=== PATIENT | female | born 1990 | race Caucasian/White ===

== ENCOUNTER 2017-01-08 18:24 | Outpatient (CLI) | payer OTHER ==
[2017-01-08 19:38] LABS: Appearance,Urine Cloudy (Clear); Bacteria,Urine Rare /hpf; Bilirubin,Urine Negative (Negative); Glucose,Urine (UA) Trace (Negative); Ketones,Urine 1+ (Negative); Leukocyte Esterase,Urine Large (Negative); Mucus,Urine Few /hpf; Nitrite,Urine Negative (Negative); PH, Urine 5.5 (5.0-8.0); Particle Count 15249; Protein,Urine 1+ (Negative); Specific Gravity,Urine 1.025 (1.001-1.035); Squamous Epithelial Cell,Urine 7 /hpf (0-4); UA Billing (MACRO vs. MICRO) MICRO; Urobilinogen,Urine <2.0 mg/dL (<2.0); WBC,Urine 15 /hpf (0-5)
[2017-01-08 19:41] VITALS: BP 118/71; RESP 20; TEMP 97.2
[2017-01-08] MEDS ORDERED: LACTATED RINGERS 1,000 ML IV SCH (19:45)
[2017-01-08 20:45] VITALS: PULSE 110
--- NOTE | 2017-01-16 15:01 | P.MSEPDOC ---
Presenting Problems - Arrival Data Date of Arrival on Unit: 01/08/17 Time of Arrival on Unit: 18:05 Mode of Transport: Ambulatory - Complaint OB-Reason for Admission/Chief Complaint: Other Comment: flu symptoms since 199. n/v. then contx this am. now when wiped pinkish on tissue. Medical History - Information : 1 Para: 0 Term: 0 : 0 Abortions: Spontaneous or Elective: 0 Number of Living Children: 0 - Gestational Age Expected Date of Delivery: 02/05/17 Gestational Age by MARCUS (wks/days): 37 Weeks and 1 Days - History Complications: Other Comment: flu. pinkish discharge. Review of Systems - Review of Systems Constitutional: No problems Breast: No problems ENT: No problems Cardiovascular: No problems Respiratory: No problems Gastrointestinal: No problems Genitourinary: No problems Musculoskeletal: No problems Neurological: No problems Skin: No problems Comment: see obix for history of preg. Vital Signs - Temperature Temperature: 97.2 F Temperature Source: Tympanic - Pulse Radial Pulse Rate: 110 Pulse Assessment Method: Pulse Oximetry - Respirations Respiratory Rate: 20 O2 Sat by Pulse Oximetry: 98 - Blood Pressure Right Arm Blood Pressure: 118/71 Blood Pressure Mean: 86 Blood Pressure Source: Automatic Cuff Medical Screen Scoring (Pre) - Uterine Contractions Frequency: N/A Duration: N/A Intensity: N/A - Maternal Vital Signs Maternal Temperature: N/A Maternal Blood Pressure: N/A Signs of Preeclampsia: Headache = 1, Nausea/Vomiting = 1 Maternal Respirations: N/A - Assessment Baseline FHR: 150 Heart Rate - NICHD Category: Category I (Normal) = 0 NST: Reactive - Total Score Total Score (Pre): 2 - Level of Risk Level of Risk: Low (0-5) Physician Notification (Pre) - Physician Notified Physician Notified Date: 01/08/17 Physician Notified Time: 19:00 Physician/Practitioner Notifed:: mary Spoke With: simin New Order Received: Yes Medical Screen Scoring (Post) - Cervical Exam Dilation: Exam Deferred - Total Score Total Score (Post): 0 - Post Treatment Level of Risk Post Treatment Level of Risk: Medium (6-9) Physician Notification (Post) - Physician Notified Physician Notified Date: 01/08/17 Physician Notified Time: 20:30 Physician/Practitioner Notified:: Luis Miguel New Order Received: Yes - Notification Comment Comment: discharge with instructions Disposition - Disposition OB Disposition: Discharge to home Discharge Date: 01/08/17 Discharge Time: 20:35 I agree with the RN Medical Screening Exam: No Risk & Benefit of care provided described in d/c instruction: No Diagnosis: RELATED CONDITIONS, UNSPECIFIED, THIRD TRIMESTER
== END 2017-01-08 20:35 | disposition home or self-care (01) ==
LOC: FBPOP 18:24
PROVIDERS: ATTEND Obstetrics & Gynecology
DX: O26.93 Pregnancy related conditions, unspecified, third trimester (principal); Z3A.37 37 weeks gestation of pregnancy
CPT/HCPCS: 59025; 81001; 87086; 96365; 99214

== ENCOUNTER 2017-01-27 00:15 | Inpatient (IN) | payer OTHER ==
[2017-01-27 01:19] VITALS: BMI 46.8
[2017-01-27] MEDS ORDERED: TERBUTALINE 1 MG/ML VIAL SQ PRN (01:21)
[2017-01-27] MEDS ORDERED: METHYLERGONOVINE 0.2 MG/ML 1 ML AMP IM PRN (01:21)
[2017-01-27] MEDS ORDERED: CARBOPROST TROMETHAMINE 250 MCG/ML 1 ML AMP IM PRN (01:21)
[2017-01-27] MEDS ORDERED: OXYTOCIN 10 UNIT/ML 1 ML VIAL IM PRN (01:21)
[2017-01-27] MEDS ORDERED: LIDOCAINE 1% (PF) 10 MG/ML (30 ML SDV) SQ PRN (01:21)
[2017-01-27] MEDS: LACTATED RINGERS 1,000 ML IV SCH ×4 (01:26→20:18)
[2017-01-27 01:41] LABS: Anisocytosis Slight; Basophils % (A) 0 %; CH 28.8; CHCM 32.4; Eosinophils # (A) 0.1 k/uL (0-0.7); Eosinophils % (A) 0 %; HCT 36.4 % (34.0-46.0); HDW 3.05; HGB 11.4 gm/dL (11.4-16.0); Hypochromasia Slight; Luc # (Auto) 0.26; Luc % (Auto) 2; Lymphocytes # (A) 1.8 k/uL (1.0-4.8); Lymphocytes % (A) 13 %; MCH 28.1 pg (25.0-35.0); MCHC 31.4 g/dL (31.0-37.0); MCV 89.4 fL (80.0-100.0); Mean Platelet Volume 8.8; Monocytes # (A) 0.8 k/uL (0-1.0); Monocytes % (A) 6 %; Neutrophils # (A) 11.5 k/uL (1.3-7.7); Neutrophils % (A) 80 %; RBC 4.07 m/uL (3.80-5.40); RDW 16.2 % (11.5-15.5); WBC 14.5 k/uL (3.8-10.6); WBC (Perox) 14.88
[2017-01-27] MEDS ORDERED: OXYTOCIN 20 UNITS/1000 ML NS 1,000 ML IV SCH (04:00)
[2017-01-27] MEDS ORDERED: SODIUM CHLORIDE 0.9% 100 ML BAG ONE (08:05)
[2017-01-27] MEDS ORDERED: fentaNYL (PF) 50 MCG/ML 5 ML AMP ONE (08:05)
[2017-01-27] MEDS ORDERED: BUPIVACAINE (PF) 0.25% 30 ML VIAL ONE (08:05)
--- NOTE | 2017-01-27 08:43 | P.HPOB ---
History of Present Illness H&P Date: 01/27/17 Chief Complaint: My water broke at 11:30 last night This is a 26-year-old white female 1 para 0 EDC 02/05/2017 at 38-5/7 weeks' gestation. Patient presents with a history of her water breaking at 11: 30 last night, she reports clear fluid. Irregular mild uterine contractions to follow. Fetus is been active throughout the . She denies vaginal bleeding. Past medical history is significant for depression and anxiety, along with asthma, exercise-induced. Past surgical history is negative. Current medications vitamins daily ALLERGIES none known. Social history significant for social alcohol, one half pack per day tobacco. 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 Family history is essentially unremarkable. history blood type is AB+, rubella status immune. VDRL testing, hepatitis B surface antigen, HIV testing, gonorrhea and chlamydia cultures, 1 hour Glucola screen all negative. Group B strep cultures negative. is remarkable for peripheral cord insertion, as well as elevated FREIDA, weekly nonstress testing all reassuring. On exam this is a pleasant young female, 5 foot 0 inches, 240 pounds, blood pressure 141/85, vital signs are otherwise stable and the patient is afebrile. The general physical exam is within normal limits. The cervix currently is 5-6 cm dilated, 70% effaced, -2 station, vertex presentation. There is meconium stained fluid noted at the bedside. heart rate with an internal scalp lead reveals good overall variability, suggestion of variable decelerations, some with late components. Overall reassuring. Impression: 38-5/7 weeks intrauterine , known elevated FREIDA and peripheral cord insertion, maternal anxiety and depression, meconium-stained fluid, now in active labor. Plan: Continue close maternal and surveillance. Epidural has been placed per her request. Anticipate normal spontaneous vaginal delivery. Past Medical History Past Medical History: No Reported History History of Any Multi-Drug Resistant Organisms: None Reported Past Surgical History: No Surgical Hx Reported Past Anesthesia/Blood Transfusion Reactions: No Reported Reaction Past Psychological History: Anxiety, Depression Smoking Status: Current every day smoker Past Drug Use History: None Reported - Past Family History Father Family Medical History: No Reported History Medications and Allergies Home Medications Medication Instructions Recorded Confirmed Type Sertraline [Zoloft] 50 mg PO DAILY 01/27/17 01/27/17 History Allergies Allergy/AdvReac Type Severity Reaction Status Date / Time No Known Allergies Allergy Verified 01/27/17 00:29 Exam - Vital Signs Vital signs: Vital Signs Temp Pulse Resp BP Pulse Ox 01/27/17 00:53 96.1 F L 116 H 18 141/85 98 01/27/17 00:45 96.1 F L 116 H 18 141/85 98 Intake and Output 01/26/17 01/27/17 01/27/17 22:59 06:59 14:59 Other: # Voids 2 Weight 108.862 kg Results Result Diagrams: 01/27/17 01:28 Abnormal Lab Results - Last 24 Hours (Table) 01/27/17 Range/Units 01:28 WBC 14.5 H (3.8-10.6) k/uL RDW 16.2 H (11.5-15.5) % Neutrophils # 11.5 H (1.3-7.7) k/uL
[2017-01-27] MEDS ORDERED: OXYTOCIN 10 UNIT/ML 1 ML VIAL ONE (15:01)
[2017-01-27] MEDS ORDERED: KETOROLAC 30 MG/ML 1 ML VIAL ONE (15:01)
[2017-01-27] MEDS ORDERED: MORPHINE SULFATE (PF) 0.3 MG/0.3 ML SYR ONE (15:01)
[2017-01-27] MEDS ORDERED: ONDANSETRON 4 MG/2 ML VIAL ONE (15:01)
[2017-01-27] MEDS ORDERED: ZOLPIDEM 5 MG TAB PO PRN (15:59)
[2017-01-27] MEDS ORDERED: diphenhydrAMINE 50 MG/ML 1 ML VIAL IVP PRN ×2 (15:59)
[2017-01-27] MEDS ORDERED: METOCLOPRAMIDE 5 MG/ML 2 ML VIAL IVP PRN (15:59)
[2017-01-27] MEDS ORDERED: ONDANSETRON 4 MG/2 ML VIAL IVP PRN ×2 (15:59→18:46)
[2017-01-27] MEDS ORDERED: NALOXONE 0.4 MG/ML 1 ML VIAL IV PRN ×2 (15:59→18:46)
[2017-01-27] MEDS ORDERED: diphenhydrAMINE 50 MG CAP PO PRN (15:59)
--- NOTE | 2017-01-27 15:59 | P.OP ---
Date of Procedure: 01/27/17 Preoperative Diagnosis: Arrest of descent, maternal exhaustion Postoperative Diagnosis: Left occiput transverse position Procedure(s) Performed: Primary low transverse section Implants: Anesthesia: spinal Surgeon: Alena Briscoe Salesperson Corsets #1: Petey Ba Estimated Blood Loss (ml): 600 IV fluids (ml): 1,000 Urine output (ml): 100 Pathology: other (Meconium-stained placenta) Condition: stable Disposition: PACU Indications for Procedure: Operative Findings: Description of Procedure: After an hour and 45 minutes of the second stage of labor, no distention of the head was noted. In addition, there was a fair amount of It. The patient stated she was exhausted and was no longer willing to push. Therefore the decision was made to proceed with a primary low transverse section. Hutton catheter placed to direct drainage. Ancef given prophylactically. Patient brought back to the operating room where a spinal with Duramorph was placed without difficulty. She's placed in the dorsal supine position with left lateral uterine displacement. The abdomen is prepped and draped in usual sterile fashion. The appropriate timeout is performed to assure proper patient and procedural identification. The analgesia is checked and noted to be adequate. A low transverse skin incision is made in this is carried down to the subcutaneous tissue which is approximate 10 cm deep. Fascia is isolated, scored and extended bilaterally with curved Pickett scissors. Peritoneum is next identified and incised, there is no bowel or bladder involvement. The disposable ring retractors placed into the abdomen for very good exposure. A low transverse uterine incision is made in this is carried down through the myometrium. It is extended with blunt dissection. The 's head is delivered in the left occiput transverse position. The umbilical cord is doubly clamped and ligated. Patient is officially delivered of a liveborn female infant at 1527 hours. weighed 7 lbs. 14 oz. or 3570 g. Infant is handed to waiting nurses for evaluation where scores of 8 and 9 at one and 5 minutes respectively are given. The placentas delivered manually, it is inspected and noted to be intact with trivascular cord at 1528 hrs. It is noted to be darkly meconium stained. The uterus is externalized. It is wiped clean with a sterile sponge to avoid any retained products of conception. The uterus is closed in a two-step fashion , first layer in a running locking technique, second layer imbricated. Bilateral ovaries and tubes are inspected and noted to be normal. Abdomen is suctioned with suction on guard and the uterus is gently placed back into the abdominal cavity. Bilateral gutters are inspected and cleaned. Uterine incision is noted to be clean and dry, well approximated. Peritoneum is closed with a 3-0 Vicryl suture in a running fashion. Fascia is closed in a running fashion with 0 Vicryl suture. Over ligation in the midline is performed. Subcutaneous tissue is irrigated and noted to be clean and dry. It is reapproximated with 3-0 Vicryl in a running stitch. Wide jami are used for final skin closure. Dressing is placed to the wound. Uterus is then massaged and several clots from the intrauterine cavity are expressed. Hutton is noted to be draining clear urine. All sponge needle and enhancement counts are correct at the end of this procedure. Patient is brought back to the recovery room in very good condition with stable vital signs including a pulse of 102, blood pressure 97/46.
[2017-01-27] MEDS ORDERED: MORPHINE SULFATE 4 MG/ML SYRINGE IVP PRN (18:46)
[2017-01-27] MEDS: SENNOSIDES-DOCUSATE SODIUM 1 EACH TAB PO SCH (20:18)
[2017-01-27] MEDS: KETOROLAC 30 MG/ML 1 ML VIAL IVP PRN (21:44)
[2017-01-28] MEDS: LACTATED RINGERS 1,000 ML IV SCH (00:46)
[2017-01-28] MEDS: KETOROLAC 30 MG/ML 1 ML VIAL IVP PRN (04:11)
[2017-01-28] MEDS: SENNOSIDES-DOCUSATE SODIUM 1 EACH TAB PO SCH ×2 (07:31→19:55)
--- NOTE | 2017-01-28 07:46 | P.PN ---
Subjective Principal diagnosis: Postoperative day #1 Well. Positive flatus. Pain well controlled. Moderate lochia rubra, no large blood clots. Objective - Vital Signs Vital signs: Vital Signs Temp 97.9 F 01/28/17 07:32 Pulse 97 01/28/17 07:32 Resp 16 01/28/17 07:32 BP 102/63 01/28/17 07:32 Pulse Ox 97 01/28/17 04:00 Intake & Output 01/27/17 01/28/17 01/28/17 18:59 06:59 18:59 Intake Total 600 Output Total 1700 Balance -1100 Intake: Other 600 Output: Urine 1700 Straight 1100 Uretheral (Hutton) 600 Other: Voiding Method Indwelling Catheter - Constitutional General appearance: Present: morbidly obese - EENT Eyes: Present: PERRLA ENT: Present: hearing grossly normal - Neck Neck: Present: normal ROM - Respiratory Respiratory: bilateral: CTA - Cardiovascular Rhythm: regular - Gastrointestinal General gastrointestinal: Present: normal bowel sounds - Integumentary Integumentary Comment(s): Incision clean and dry, intact, well approximated. Fundus firm, midline, symmetric, 18-20 week size. Integumentary: Present: normal - Neurologic Neurologic: Present: CNII-XII intact - Musculoskeletal Musculoskeletal: Present: gait normal, strength equal bilaterally - Psychiatric Psychiatric: Present: A&O x's 3, appropriate affect, intact judgment & insight - Labs CBC & Chem 7: 01/27/17 01:28 Assessment and Plan Plan: Continue postoperative care. Advanced diet and activity, likely discharge home tomorrow. Time with Patient: Less than 30
[2017-01-28] MEDS ORDERED: SERTRALINE 50 MG TAB PO STA (08:01)
[2017-01-28] MEDS: diphenhydrAMINE 25 MG CAP PO PRN (08:56)
[2017-01-28 09:38] LABS: Anisocytosis Slight; Basophils % (A) 0 %; CH 28.5; CHCM 32.1; Eosinophils % (A) 0 %; HCT 36.3 % (34.0-46.0); HDW 3.07; HGB 11.4 gm/dL (11.4-16.0); Hypochromasia Slight; Luc # (Auto) 0.28; Luc % (Auto) 2; Lymphocytes # (A) 1.7 k/uL (1.0-4.8); Lymphocytes % (A) 10 %; MCH 27.9 pg (25.0-35.0); MCHC 31.3 g/dL (31.0-37.0); MCV 89.1 fL (80.0-100.0); Mean Platelet Volume 8.8; Monocytes % (A) 6 %; Neutrophils # (A) 13.9 k/uL (1.3-7.7); Neutrophils % (A) 82 %; RBC 4.08 m/uL (3.80-5.40); RDW 16.8 % (11.5-15.5); WBC 16.9 k/uL (3.8-10.6); WBC (Perox) 16.79
[2017-01-28] MEDS: IBUPROFEN 600 MG TAB PO PRN ×3 (10:43→21:20)
--- NOTE | 2017-01-28 12:13 | P.PN ---
Progress Note - Text Postoperative day 1 status post section under spinal anesthesia, and intrathecal morphine given for postoperative analgesia, patient doing well, there is no anesthesia related complications, further management as per her primary team
[2017-01-28] MEDS: ACETAMINOPHEN TAB 325 MG TAB PO PRN (17:50)
[2017-01-29] MEDS: ACETAMINOPHEN TAB 325 MG TAB PO PRN ×2 (00:21→08:08)
[2017-01-29] MEDS: diphenhydrAMINE 25 MG CAP PO PRN (00:21)
[2017-01-29] MEDS: LACTATED RINGERS 1,000 ML IV SCH ×3 (00:57→20:47)
[2017-01-29] MEDS: Acetaminophen-Codeine 300-30mg TAB PO PRN ×4 (03:50→22:31)
--- NOTE | 2017-01-29 07:37 | P.PN ---
Subjective Principal diagnosis: Postoperative day #2 Positive flatus, breast-feeding going well. No complaints. Objective - Vital Signs Vital signs: Vital Signs Temp 98.6 F 01/29/17 00:00 Pulse 96 01/29/17 00:00 Resp 18 01/29/17 00:00 BP 123/83 01/29/17 00:00 Pulse Ox 96 01/29/17 00:00 Intake & Output 01/28/17 01/29/17 01/29/17 18:59 06:59 18:59 Output Total 750 Balance -750 Output: Urine 750 Other: Voiding Method Toilet - Constitutional General appearance: Present: morbidly obese - EENT Eyes: Present: PERRLA ENT: Present: hearing grossly normal - Neck Thyroid: bilateral: normal size - Respiratory Respiratory: bilateral: CTA - Cardiovascular Rhythm: regular - Gastrointestinal General gastrointestinal: Present: normal bowel sounds - Integumentary Integumentary Comment(s): Incision clean and dry, intact, well approximated. Uterine fundus firm, nontender, 18 week size. - Neurologic Neurologic: Present: CNII-XII intact - Musculoskeletal Musculoskeletal: Present: gait normal, strength equal bilaterally - Psychiatric Psychiatric: Present: A&O x's 3, appropriate affect, intact judgment & insight - Labs CBC & Chem 7: 01/28/17 09:15 Labs: Abnormal Lab Results - Last 24 Hours (Table) 01/28/17 Range/Units 09:15 WBC 16.9 H (3.8-10.6) k/uL RDW 16.8 H (11.5-15.5) % Neutrophils # 13.9 H (1.3-7.7) k/uL Assessment and Plan Plan: Possible discharge home today pending newborns status. Patient would be in very good condition for discharge home, and would use [id number] ibuprofen products as needed for pain. I'm recommending ibuprofen, 200 mg pills , for every 8 hours as needed. I reviewed with her proper incisional care. No intercourse tampons or douching. Call with any redness or drainage of the incision, with any pain not alleviated by ibuprofen, with any issues breast- feeding or with any difficulties. No driving for 2 weeks, no heavy lifting, no intercourse. I have given the patient a prescription for breast pump. She will continue taking her vitamin daily. In addition, I have given her prescription for Zoloft 50 mg to continue once daily. Time with Patient: Less than 30
[2017-01-29] MEDS: SENNOSIDES-DOCUSATE SODIUM 1 EACH TAB PO SCH ×2 (08:08→19:46)
[2017-01-29] MEDS: IBUPROFEN 600 MG TAB PO PRN ×2 (11:11→17:27)
[2017-01-30] MEDS: IBUPROFEN 600 MG TAB PO PRN ×4 (01:30→20:17)
[2017-01-30] MEDS: Acetaminophen-Codeine 300-30mg TAB PO PRN ×3 (03:19→15:49)
--- NOTE | 2017-01-30 07:21 | P.DS ---
Providers Date of admission: 01/27/17 00:45 Expected date of discharge: 01/30/17 Attending physician: Alena Briscoe [facility] Course: This is a 26-year-old white female 1 para 0 EDC 02/05 17 at 38 and sevenths weeks' gestation. Patient presented with spontaneous amniorrhexis, clear fluid. Her was unremarkable, group B strep cultures negative, rubella status immune, blood type AB positive. Please see dictated history and physical for details. Patient progressed to complete dilatation and began the second stage of labor. She was unable to progress, malposition suspected. She underwent a primary low transverse section and gave to a liveborn female infant in the left occiput transverse position. Infant weighed 7 lbs. 14 oz. or 3570 g. She did well intraoperatively with an estimated blood loss of 600 mL 's. Please see my dictated operative note for details. The patient has done well postoperatively. This morning she is voiding, ambulating and passing flatus without difficulty. Her incision is clean and dry , intact. Jesus will be removed and Steri-Strips with Mastisol will be applied. Her breasts are not engorged. Her extremities reveal trace edema. Chest is clear in all zaragoza. Patient has been started on Zoloft 50 mg once daily for a history of depression. This morning she denies any suicidal or homicidal ideation. At this point the is undergoing phototherapy for increased bilirubin. If infant is discharged home later today, plan is to discharge the patient as well. I have given her prescription for Zoloft 50 mg to continue once daily. I have written her prescription for Tylenol 3, 1-2 pills every 4 hours as needed for moderate to severe pain. She will alternate this with over-the- counter ibuprofen products, 200 mg pills, 3 every 6 hours as needed. I have asked her to call me with any fevers shakes or chills, foul smelling or copious lochia, with the passage of large blood clots, with any pain not alleviated by the above regime, or indeed with any concerns. No driving for 2 weeks, no heavy lifting, no intercourse tampons or douching. We have briefly discussed options for contraception and we will review this more thoroughly in the office. will follow-up with novelty balloon assembler and packer as per recommendations. Patient Condition at Discharge: Good Plan - Discharge Summary New Discharge Prescriptions: No Action Sertraline [Zoloft] 50 mg PO DAILY Discharge Medication List Sertraline [Zoloft] 50 mg PO DAILY 01/27/17 [History] Follow up Appointment(s)/Referral(s): Alena Briscoe MD [Primary Care Provider] - 2 Weeks Discharge Disposition: HOME SELF-CARE
[2017-01-30] MEDS: SENNOSIDES-DOCUSATE SODIUM 1 EACH TAB PO SCH ×2 (07:43→20:17)
[2017-01-30] MEDS: SIMETHICONE 80 MG CHEWABLE PO PRN ×2 (09:10→14:20)
[2017-01-31] MEDS: Acetaminophen-Codeine 300-30mg TAB PO PRN ×2 (00:01→08:31)
[2017-01-31] MEDS: SENNOSIDES-DOCUSATE SODIUM 1 EACH TAB PO SCH ×2 (00:01→08:32)
[2017-01-31 00:07] VITALS: TEMP 98.4
[2017-01-31] MEDS: SIMETHICONE 80 MG CHEWABLE PO PRN (00:21)
[2017-01-31] MEDS: IBUPROFEN 600 MG TAB PO PRN (01:41)
[2017-01-31 09:33] VITALS: BP 99/62; PULSE 65; RESP 17
== END 2017-01-31 11:27 | disposition home or self-care (01) | DRG 766 ==
LOC: FBPOP 00:15 → 4FBP 00:45
PROVIDERS: ADMIT Obstetrics & Gynecology; ATTEND Obstetrics & Gynecology
PROC: 10D00Z1 Extraction of Products of Conception, Low, Open Approach (ICD-10-PCS; principal; 2017-01-27 15:09)
PROC: 4A1H74Z Monitoring of Products of Conception, Cardiac Electrical Activity, Via Natural or Artificial Opening (ICD-10-PCS; principal; 2017-01-27 15:09)
DX: O77.0 Labor and delivery complicated by meconium in amniotic fluid (principal); O64.0XX0 Obstructed labor due to incomplete rotation of fetal head, not applicable or unspecified; F32.9 Major depressive disorder, single episode, unspecified; Z37.0 Single live birth; O99.344 Other mental disorders complicating childbirth; O75.81 Maternal exhaustion complicating labor and delivery; O99.334 Smoking (tobacco) complicating childbirth; F17.200 Nicotine dependence, unspecified, uncomplicated; Z79.899 Other long term (current) drug therapy; Z3A.38 38 weeks gestation of pregnancy
CPT/HCPCS: 59025; 84112; 85025; 88307; 94760; 99213

== ENCOUNTER → 2017-11-19 | Outpatient (CLI) | payer OTHER ==
[2017-11-19 17:33] LABS: HCT 40.3 % (34.0-46.0); HGB 13.7 gm/dL (11.4-16.0); MCH 29.7 pg (25.0-35.0); MCV 87.2 fL (80.0-100.0); Mean Platelet Volume 7.1; Platelet Count 233 k/uL (150-450); RBC 4.62 m/uL (3.80-5.40); RDW 15.6 % (11.5-15.5); WBC 14.2 k/uL (3.8-10.6)
[2017-11-19 17:38] LABS: Glucose 73 mg/dL (74-99)
[2017-11-20 01:26] LABS: HIV AB P24 Non-Reactive (Non-Reactive); HIV P24 AG Non-Reactive (Non-Reactive)
== END | disposition home or self-care (01) ==
LOC: LABWHC1 16:22
PROVIDERS: ATTEND Obstetrics & Gynecology
DX: O26.811 Pregnancy related exhaustion and fatigue, first trimester (principal); Z3A.00 Weeks of gestation of pregnancy not specified
CPT/HCPCS: 36415; 82565; 82947; 85027; 86762; 86780; 86850; 86900; 86901; 87340; 87390

== ENCOUNTER 2018-06-07 10:59 | Outpatient (CLI) | payer OTHER ==
[2018-06-07 11:28] VITALS: BP 117/63; PULSE 97; RESP 16; TEMP 98.1
--- NOTE | 2018-07-01 18:04 | P.MSEPDOC ---
Presenting Problems - Arrival Data Date of Arrival on Unit: 06/07/18 Time of Arrival on Unit: 11:12 Mode of Transport: Ambulatory - Complaint OB-Reason for Admission/Chief Complaint: NST Comment: pt here for a NST due to GDM per Dr. Maher Medical History - Information : 2 Para: 1 Term: 1 : 0 Abortions: Spontaneous or Elective: 0 Number of Living Children: 1 - Gestational Age Gestational Age by MARCUS (wks/days): 38 Weeks and 3 Days - History Complications: GDM Review of Systems - Review of Systems Constitutional: No problems Breast: No problems ENT: No problems Cardiovascular: No problems Respiratory: No problems Gastrointestinal: No problems Genitourinary: No problems Musculoskeletal: No problems Neurological: No problems Skin: No problems Vital Signs - Temperature Temperature: 98.1 F Temperature Source: Oral - Pulse Right Brachial Pulse Rate: 97 Pulse Assessment Method: Automatic Cuff - Respirations Respiratory Rate: 16 Oxygen Delivery Method: Room Air - Blood Pressure Right Arm Blood Pressure: 117/63 Blood Pressure Mean: 81 Blood Pressure Source: Automatic Cuff Medical Screen Scoring (Pre) - Cervical Exam Dilation: Exam Deferred Effacement: Exam Deferred Membranes: Intact - Uterine Contractions Frequency: N/A Duration: N/A Intensity: N/A - Maternal Vital Signs Maternal Temperature: N/A Maternal Blood Pressure: N/A Signs of Preeclampsia: Headache = 1 Maternal Respirations: N/A - Pain Assessment Pain Scale Used: Numeric (1 - 10) Pain Intensity: 0 Pain Management Goal: 0 Pain Behavior: Vocalization - Maternal Trauma Maternal Trauma: N/A - Total Score Total Score (Pre): 1 Medical Screen Scoring (Post) - Assessment Heart Rate: 130 Heart Rate - NICHD Category: Category I (Normal) = 0 NST: Reactive Position: N/A Station: N/A - Total Score Total Score (Post): 0 - Post Treatment Level of Risk Post Treatment Level of Risk: Low (0-5) Physician Notification (Post) - Physician Notified Physician Notified Date: 06/07/18 Physician Notified Time: 12:05 Spoke With: dr higginbotham New Order Received: Yes - Notification Comment Comment: may discharge to home Disposition - Disposition OB Disposition: Discharge to home Discharge Date: 06/07/18 Discharge Time: 12:19 I agree with the RN Medical Screening Exam: Yes Risk & Benefit of care provided described in d/c instruction: Yes Diagnosis: GESTATIONAL DIABETES IN , INSULIN CONTROLLED
== END 2018-06-07 12:19 | disposition home or self-care (01) ==
LOC: FBPOP 10:59
PROVIDERS: ATTEND Obstetrics & Gynecology
DX: O24.414 Gestational diabetes mellitus in pregnancy, insulin controlled (principal); Z3A.38 38 weeks gestation of pregnancy
CPT/HCPCS: 59025; 99213

== ENCOUNTER 2018-06-16 05:46 | Inpatient (IN) | payer OTHER ==
--- NOTE | 2018-06-14 13:56 | P.HPOB ---
History of Present Illness H&P Date: 06/14/18 Chief Complaint: Patient is presenting for repeat section. This patient is a pleasant 28-year-old 2 para 1 female estimated date of confinement 06/18/2018 estimated gestational age 39-5/7 weeks who presents to labor and delivery for elective repeat section. Patient's had a previous section for failure to progress after pushing for 1 hour and as requested repeat section. has been complicated by gestational diabetes which has been diet controlled(per maternal- medicine) . is been otherwise uncomplicated. Review of Systems Gastrointestinal: Reports heartburn Genitourinary: Reports Menstruation: Reports amenorrhea Past Medical History Past Medical History: Diabetes Mellitus Additional Past Medical History / Comment(s): GESTATIONAL DIABETES (DIET CONTROLLED), HX OF PALPITATIONS DUE TO ANXIETY., OCCASIONAL GERD., - LMP August History of Any Multi-Drug Resistant Organisms: None Reported Past Surgical History: Section Past Anesthesia/Blood Transfusion Reactions: No Reported Reaction, Motion Sickness Past Psychological History: Anxiety, Depression Smoking Status: Former smoker Past Alcohol Use History: None Reported Additional Past Alcohol Use History / Comment(s): QUIT SMOKING 1 MONTH AGO (APR 2018). SMOKED 1-2 CIGARETTES /DAY. SMOKED 16 YEARS. Past Drug Use History: None Reported - Past Family History Father Family Medical History: No Reported History Mother Additional Family Medical History / Comment(s): PRE-CANCEROUS CELLS UTERINE Medications and Allergies Home Medications Medication Instructions Recorded Confirmed Type Pnv No.95/Ferrous Fum/Folic AC 1 each PO DAILY 06/07/18 06/11/18 History [ Multivitamin Tablet] Acetaminophen [Tylenol Extra 1,000 mg PO DIRECTED PRN 06/11/18 06/11/18 History Strength] Allergies Allergy/AdvReac Type Severity Reaction Status Date / Time No Known Allergies Allergy Verified 06/11/18 14:48 Exam - OBG Physical Exam Abdomen: bowel sounds normal, no diffuse tenderness, no bruit present, no guarding noted, no hepatomegaly, no splenomegaly, no mass Vulva: both: normal Vagina: normal moisture, no discharge Cervix: no lesion, no discharge Uterus: enlarged (Fundal is 42 cm.) Results blood work shows she is AB+, rubella immune, RPR is nonreactive, hepatitis B is negative, HIV is nonreactive, Glucola was 148 with an abnormal 3 hour gtt. Ultrasounds including level III per maternal- medicine were normal. Assessment and Plan Assessment: This is a pleasant 28-year-old 2 para 1 female 39-5/7 weeks' gestation with diet-controlled gestational diabetes. Patient is a previous section desires repeat section. Plan at this time is repeat low transverse section. Akua and Ann have discussed the surgery and risks including risks of infection, bleeding, possible injury bowel, bladder, vessels , and/or other organs. She also understands risk of DVT and pulmonary embolism. All the patient's questions are answered written consent is obtained. (1) 39 weeks gestation of Status: Acute Code(s): Z3A.39 - 39 WEEKS GESTATION OF SNOMED Code( s): 18502208 (2) Gestational diabetes mellitus (GDM) in childbirth, diet controlled Status: Acute Code(s): O24.420 - GESTATIONAL DIABETES MELLITUS IN CHILDBIRTH, DIET CONTROLLED SNOMED Code(s): 18371021 (3) Previous delivery affecting Status: Acute Code(s): O34.219 - MATERNAL CARE FOR UNSP TYPE SCAR FROM PREVIOUS DEL SNOMED Code(s): 392453092
[2018-06-16] MEDS ORDERED: LACTATED RINGERS 1,000 ML IV ONE (05:57)
[2018-06-16] MEDS ORDERED: CITRIC ACID-SODIUM CITRATE 15 ML CUP PO ONE (05:57)
[2018-06-16] MEDS ORDERED: LACTATED RINGERS 1,000 ML IV SCH (05:57)
[2018-06-16 06:03] VITALS: RESP 16; BMI 47.8
[2018-06-16 06:05] LABS: Glucose,Whole Blood 80 mg/dL (75-99)
[2018-06-16 06:35] LABS: Anisocytosis Slight; Basophils % (A) 0 %; Eosinophils # (A) 0.1 k/uL (0-0.7); Eosinophils % (A) 1 %; HCT 35.8 % (34.0-46.0); HGB 11.5 gm/dL (11.4-16.0); Hypochromasia Slight; Lymphocytes # (A) 1.9 k/uL (1.0-4.8); Lymphocytes % (A) 16 %; MCH 25.7 pg (25.0-35.0); MCV 80.2 fL (80.0-100.0); Mean Platelet Volume 8.4; Monocytes # (A) 0.6 k/uL (0-1.0); Monocytes % (A) 5 %; Neutrophils # (A) 8.9 k/uL (1.3-7.7); Neutrophils % (A) 76 %; Platelet Count 198 k/uL (150-450); RBC 4.47 m/uL (3.80-5.40); RDW 16.2 % (11.5-15.5); WBC 11.7 k/uL (3.8-10.6)
[2018-06-16] MEDS ORDERED: ceFAZolin IN SWFI 2 GM/20 ML SYRINGE IVP ONE (07:15)
[2018-06-16] MEDS ORDERED: KETOROLAC 30 MG/ML 1 ML VIAL ONE (07:51)
[2018-06-16] MEDS ORDERED: OXYTOCIN 10 UNIT/ML 1 ML VIAL ONE (07:51)
[2018-06-16] MEDS ORDERED: MORPHINE SULFATE (PF) 0.3 MG/0.3 ML SYR ONE (07:51)
[2018-06-16] MEDS ORDERED: NALBUPHINE 10 MG/ML VIAL (10ML MDV) ONE (07:51)
[2018-06-16] MEDS ORDERED: ePHEDrine SULFATE/0.9% NACL/PF 50 MG/5 ML SYRINGE IV ONE (07:51)
[2018-06-16] MEDS ORDERED: ONDANSETRON 4 MG/2 ML VIAL ONE (07:51)
[2018-06-16] MEDS ORDERED: ONDANSETRON 4 MG/2 ML VIAL IVP PRN ×2 (08:15→08:53)
[2018-06-16] MEDS ORDERED: NALOXONE 0.4 MG/ML 1 ML VIAL IV PRN ×2 (08:15→08:53)
[2018-06-16] MEDS ORDERED: diphenhydrAMINE 50 MG/ML 1 ML VIAL IVP PRN ×2 (08:15→08:53)
[2018-06-16] MEDS ORDERED: MORPHINE SULFATE 4 MG/ML SYRINGE IVP PRN (08:15)
--- NOTE | 2018-06-16 08:41 | P.OP ---
Date of Procedure: 06/16/18 Preoperative Diagnosis: #1: 39-5/7 week intrauterine . #2: Previous section desires repeat. #3: Gestational diabetes. Postoperative Diagnosis: Same Procedure(s) Performed: Repeat low transverse section Anesthesia: spinal Surgeon: Kaleb Maher Motorcoach Operator #1: Beatriz Crockett Estimated Blood Loss (ml): 800 Pathology: other (Placenta) Condition: stable Disposition: floor Indications for Procedure: Please see dictated H&P for intimate details of this patient's admission. In brief summary this is a pleasant 28-year-old 2 para 1 female 39-5/7 weeks gestation who is admitted to labor and delivery for elective repeat section. Patient understands this surgery and risks including risks of infection, bleeding, possible injury bowel, bladder, vessels, and/or other organs. She also understands increased risk of DVT and pulmonary embolism. All the patient's questions are answered written consent is obtained. Operative Findings: This is a vigorous viable female Apgars 9 and 9 delivery time was 0807 hrs. Patient had some omental adhesions to the upper abdominal part of the incision. Description of Procedure: This patient has a Hutton catheter placed to straight drain. She subsequent weight taken to the operating room where she sat up and spinal anesthetic is administered without incident. With an adequate level of anesthesia she has abdominal prep and drape. The previous Pfannenstiel incision is then incised and taken down to the fascia. Fascia is then scored with a second scalpel and then extended bilaterally using Pickett scissors. The parietal peritoneum was then identified and entered sharply. Peritoneal incision extended superior and inferior without difficulty. There was noted to be omental adhesions to the superior part of this incision. Bladder blade is then placed. Bladder peritoneum was taken down sharply with Metzenbaum scissors. Scalpels and taken low transverse uterine incision is then made. Using a hemostat I enter the uterine cavity bluntly and is loss of a large amount of clear fluid. 's head is then guided through the incision with fundal pressure delivered. Mouth and nares are bulb suctioned. There is no evidence of nuchal cord. Then gentle fundal pressure and then deliver the rest this infant's body. Is a vigorous viable female Apgars are 9 and 9 delivery time is 0807 hrs. The cord was allowed to finish pulsating is then doubly clamped cut appears to be trivascular. The infant is then handed off to nurses in attendance. Placenta is manually extracted intact. Uterus is then externalized and demarcated with Torrez clamps. Uterine incision closed in 0 Vicryl running locked fashion 2 layers. Excellent hemostasis is noted. Excess fluid is removed from the abdomen and pelvis. Uterus placed back into the abdomen. Parietal peritoneum was then closed in 0 Vicryl running fashion. Fascial incision closed in 0 PDS running fashion. Fascial incision is intact and hemostatic. Subcutaneous tissues and closed in 3-0 Vicryl. Skin is and closed using jami. All counts are correct 3. Sterile dressing is applied. There are no complications. and mother are taken to the birthing suite in satisfactory condition.
[2018-06-16] MEDS ORDERED: LANOLIN CREAM 5 GM TUBE TOPICAL PRN (08:53)
[2018-06-16] MEDS ORDERED: KETOROLAC 30 MG/ML 1 ML VIAL IVP PRN (08:53)
[2018-06-16] MEDS ORDERED: SIMETHICONE 80 MG CHEWABLE PO PRN (08:53)
[2018-06-16] MEDS ORDERED: ZOLPIDEM 5 MG TAB PO PRN (08:53)
[2018-06-16] MEDS ORDERED: OXYTOCIN 20 UNITS/1000 ML NS 1,000 ML IV SCH (08:53)
[2018-06-16] MEDS ORDERED: METOCLOPRAMIDE 5 MG/ML 2 ML VIAL IVP PRN (08:53)
[2018-06-16] MEDS: IBUPROFEN 600 MG TAB PO PRN (09:33)
[2018-06-16] MEDS: SENNOSIDES-DOCUSATE SODIUM 1 EACH TAB PO SCH ×2 (13:15→19:33)
[2018-06-16 14:17] LABS: Hemoglobin A1C 5.7 % (4.0-6.0)
[2018-06-16] MEDS: LACTATED RINGERS 1,000 ML IV SCH ×2 (14:45→16:57)
[2018-06-16] MEDS: KETOROLAC 30 MG/ML 1 ML VIAL IVP PRN ×2 (16:19→22:34)
[2018-06-16] MEDS: diphenhydrAMINE 25 MG CAP PO PRN ×2 (18:23→23:18)
[2018-06-17] MEDS: KETOROLAC 30 MG/ML 1 ML VIAL IVP PRN (04:45)
[2018-06-17] MEDS ORDERED: HYDROcodone/APAP 5-325MG 1 EACH TAB PO PRN (05:49)
--- NOTE | 2018-06-17 05:53 | P.PNOBGPC ---
Subjective - Subjective Patient reports: Reports appetite normal, Reports voiding normally, Reports pain well controlled, Reports ambulating normally : doing well Objective - Vital Signs Latest vital signs: Vital Signs Temp Pulse Resp BP Pulse Ox 06/17/18 05:47 16 06/17/18 04:00 98.2 F 109 H 16 108/74 06/17/18 02:00 16 06/16/18 23:32 98.6 F 91 16 122/71 06/16/18 22:00 16 06/16/18 19:56 97.8 F 80 16 116/64 100 06/16/18 16:00 97.6 F 84 16 112/63 96 06/16/18 15:00 97.6 F 84 16 112/63 96 06/16/18 13:20 98 06/16/18 13:00 16 99 06/16/18 12:00 97.1 F L 79 16 108/58 95 06/16/18 11:15 16 95 06/16/18 10:34 97.6 F 89 16 113/56 06/16/18 10:06 98.0 F 92 16 106/56 06/16/18 09:34 97.3 F L 16 117/60 06/16/18 09:21 98.0 F 104 H 16 113/59 06/16/18 09:09 16 97 06/16/18 09:04 97.7 F 92 16 124/61 06/16/18 08:51 96.9 F L 108 H 16 125/60 06/16/18 08:36 97.6 F 93 16 130/62 06/16/18 08:15 97.6 F 93 16 97 06/16/18 06:00 97.0 F L 103 H 16 129/80 99 Intake and Output 06/16/18 06/16/18 06/17/18 14:59 22:59 06:59 Output Total 450 200 200 Balance -450 -200 -200 Output: Urine 450 200 200 Straight 450 Other: Voiding Method Indwelling Catheter # Voids 0 1 - Exam Lungs: bilateral: normal Chest: Normal S1, Normal S2 Extremities: Present: normal Abdomen: Present: normal appearance, soft. Absent: distention, tenderness Incision: Present: normal, dry, intact Uterus: Present: normal, firm - Labs Labs: Abnormal Lab Results - Last 24 Hours (Table) 06/16/18 Range/Units 06:20 WBC 11.7 H (3.8-10.6) k/uL RDW 16.2 H (11.5-15.5) % Neutrophils # 8.9 H (1.3-7.7) k/uL Assessment and Plan Assessment: Postoperative day #1. Patient is resting without complaints. Vital signs are stable she is afebrile. Uterus is firm nontender and her incision is intact and dry. CBC is pending. Patient is tolerating some solid food and she is urinating without difficulty. My impression is a normal postoperative course. Plan is to check a CBC, encourage more ambulation, encouraged patient to shower. Continue routine postoperative care. (1) 39 weeks gestation of Current Visit: No Status: Acute Code(s): Z3A.39 - 39 WEEKS GESTATION OF SNOMED Code(s): 67484061 (2) Gestational diabetes mellitus (GDM) in childbirth, diet controlled Current Visit: No Status: Acute Code(s): O24.420 - GESTATIONAL DIABETES MELLITUS IN CHILDBIRTH, DIET CONTROLLED SNOMED Code(s): 20652592 (3) Previous delivery affecting Current Visit: No Status: Acute Code(s): O34.219 - MATERNAL CARE FOR UNSP TYPE SCAR FROM PREVIOUS DEL SNOMED Code(s): 857683278
[2018-06-17] MEDS: ACETAMINOPHEN TAB 325 MG TAB PO PRN ×3 (07:16→20:08)
[2018-06-17] MEDS: diphenhydrAMINE 25 MG CAP PO PRN (07:16)
[2018-06-17 08:03] LABS: Anisocytosis Slight; Basophils % (A) 0 %; Eosinophils # (A) 0.1 k/uL (0-0.7); Eosinophils % (A) 1 %; HCT 34.7 % (34.0-46.0); HGB 11.1 gm/dL (11.4-16.0); Hypochromasia Slight; Lymphocytes # (A) 1.3 k/uL (1.0-4.8); Lymphocytes % (A) 12 %; MCH 25.9 pg (25.0-35.0); MCHC 32.1 g/dL (31.0-37.0); MCV 80.7 fL (80.0-100.0); Mean Platelet Volume 8.5; Monocytes # (A) 0.6 k/uL (0-1.0); Monocytes % (A) 5 %; Neutrophils # (A) 8.8 k/uL (1.3-7.7); Neutrophils % (A) 81 %; Platelet Count 200 k/uL (150-450); RDW 16.3 % (11.5-15.5); WBC 10.9 k/uL (3.8-10.6)
--- NOTE | 2018-06-17 08:31 | P.PN ---
Progress Note - Text Progress Note Date: 06/17/18 28-year-old female status post section with Duramorph spinal postop day #1. No complications, no motor sensory deficits. No pruritus, nausea, vomiting. Patient doing well will be discharged home today.
[2018-06-17] MEDS: SENNOSIDES-DOCUSATE SODIUM 1 EACH TAB PO SCH ×2 (09:15→22:23)
[2018-06-17] MEDS: IBUPROFEN 600 MG TAB PO PRN ×3 (10:49→23:13)
[2018-06-18] MEDS: HYDROcodone/APAP 5-325MG 1 EACH TAB PO PRN ×2 (02:04→12:48)
[2018-06-18] MEDS: IBUPROFEN 600 MG TAB PO PRN ×2 (05:49→14:31)
--- NOTE | 2018-06-18 06:32 | P.PNOBGPC ---
Subjective - Subjective Patient reports: Reports appetite normal, Reports voiding normally, Reports pain well controlled, Reports ambulating normally : doing well Objective - Vital Signs Latest vital signs: Vital Signs Temp Pulse Resp BP Pulse Ox 06/18/18 00:00 98.1 F 104 H 16 133/89 06/17/18 16:00 98.8 F 95 16 117/68 98 06/17/18 08:00 16 06/17/18 07:30 98.1 F 95 16 121/76 99 Intake and Output 06/17/18 06/17/18 06/18/18 14:59 22:59 06:59 Other: # Voids 5 1 # Bowel Movements 1 - Exam Lungs: bilateral: normal Chest: Normal S1, Normal S2 Extremities: Present: normal Abdomen: Present: normal appearance, soft. Absent: distention, tenderness Incision: Present: normal, dry, intact Uterus: Present: normal, firm - Labs Labs: Abnormal Lab Results - Last 24 Hours (Table) 06/17/18 Range/Units 07:37 WBC 10.9 H (3.8-10.6) k/uL Hgb 11.1 L (11.4-16.0) gm/dL RDW 16.3 H (11.5-15.5) % Neutrophils # 8.8 H (1.3-7.7) k/uL Assessment and Plan Assessment: Postoperative day #2. Patient is resting without complaints and she wishes to go home. Vital signs are stable and she is afebrile. Uterus is firm nontender and her incision is intact and dry. CBC yesterday was normal. Patient is ambulating without difficulty, urinating without difficulty and tolerating regular diet. Plan today is to continue routine postoperative care and she is stable for discharge home follow up with me in 1 week for an incision check. Patient I also discussed glucose testing at her 6 weeks and she elected do a hemoglobin A1c. (1) 39 weeks gestation of Current Visit: No Status: Acute Code(s): Z3A.39 - 39 WEEKS GESTATION OF SNOMED Code(s): 00077931 (2) Gestational diabetes mellitus (GDM) in childbirth, diet controlled Current Visit: No Status: Acute Code(s): O24.420 - GESTATIONAL DIABETES MELLITUS IN CHILDBIRTH, DIET CONTROLLED SNOMED Code(s): 30220743 (3) Previous delivery affecting Current Visit: No Status: Acute Code(s): O34.219 - MATERNAL CARE FOR UNSP TYPE SCAR FROM PREVIOUS DEL SNOMED Code(s): 666317203
--- NOTE | 2018-06-18 06:38 | P.DS ---
Providers Date of admission: 06/16/18 05:46 Expected date of discharge: 06/18/18 Attending physician: Kaleb Maher Primary care physician: Stated None - Discharge Diagnosis(es) (1) 39 weeks gestation of Current Visit: No Status: Acute (2) Gestational diabetes mellitus (GDM) in childbirth, diet controlled Current Visit: No Status: Acute (3) Previous delivery affecting Current Visit: No Status: Acute Hospital Course: Please see dictated H&P for intimate details of this patient's admission. Brief summary is a pleasant 28-year-old 2 para 1 female 39-5/7 weeks gestation admitted to labor and delivery for elective repeat section. Patient is admitted she is repeat low transverse section for viable female . Please see dictated delivery note. day #2 patient's felt be stable for discharge home follow up with me in 1 week. No heavy lifting , no driving, no intercourse. Procedures: Repeat low transverse section Plan - Discharge Summary Discharge Rx Participant: Yes New Discharge Prescriptions: No Action Pnv No.95/Ferrous Fum/Folic AC [ Multivitamin Tablet] 1 each PO DAILY Acetaminophen [Tylenol Extra Strength] 1,000 mg PO DIRECTED PRN PRN Reason: Pain Discharge Medication List Pnv No.95/Ferrous Fum/Folic AC [ Multivitamin Tablet] 1 each PO DAILY [History] Acetaminophen [Tylenol Extra Strength] 1,000 mg PO DIRECTED PRN 06/11/18 [ History] Follow up Appointment(s)/Referral(s): Kaleb Maher MD [STAFF PHYSICIAN] - 1 Week Patient Instructions/Handouts: (DC) Activity/Diet/Wound Care/Special Instructions: No heavy lifting or strenuous activity for 6 weeks. No intercourse for 6 weeks. No driving as instructed. Please call if any fever, chills, excessive vaginal bleeding, and/or abdominal pain. Discharge Disposition: HOME SELF-CARE
[2018-06-18] MEDS: SENNOSIDES-DOCUSATE SODIUM 1 EACH TAB PO SCH (08:41)
[2018-06-18] MEDS: ACETAMINOPHEN TAB 325 MG TAB PO PRN (08:45)
[2018-06-18 08:49] VITALS: BP 117/74; PULSE 98; TEMP 98
== END 2018-06-18 14:45 | disposition home or self-care (01) | DRG 788 ==
LOC: 4FBP 05:46
PROVIDERS: ADMIT Obstetrics & Gynecology; ATTEND Obstetrics & Gynecology
PROC: 10D00Z1 Extraction of Products of Conception, Low, Open Approach (ICD-10-PCS; principal; 2018-06-16 08:00)
DX: O34.211 Maternal care for low transverse scar from previous cesarean delivery (principal); O24.420 Gestational diabetes mellitus in childbirth, diet controlled; O99.344 Other mental disorders complicating childbirth; F32.9 Major depressive disorder, single episode, unspecified; F41.9 Anxiety disorder, unspecified; O99.62 Diseases of the digestive system complicating childbirth; K21.9 Gastro-esophageal reflux disease without esophagitis; Z37.0 Single live birth; Z3A.39 39 weeks gestation of pregnancy; Z87.891 Personal history of nicotine dependence
CPT/HCPCS: 83036; 85025; 86850; 86900; 86901; 88307

== ENCOUNTER 2019-06-19 22:58 | Emergency (ER) | payer OTHER ==
[2019-06-19 23:05] VITALS: BP 154/85; PULSE 97; RESP 20; TEMP 97.9
[2019-06-19] MEDS ORDERED: LORATADINE-PSEUDOEPH 5-120 MG 1 EACH TAB.ER.12H PO STA (23:14)
[2019-06-19] MEDS ORDERED: DEXAMETHASONE SOD PHOSPHATE 10 MG/ML 1 ML VIAL IM STA (23:14)
[2019-06-19] MEDS ORDERED: AZITHROMYCIN 500 MG TAB PO STA (23:14)
--- NOTE | 2019-06-19 23:17 | ED ---
URI HPI - General Chief Complaint: Neuro Symptoms/Deficit Stated Complaint: Facial Numbness, Hearing Issue Time Seen by Provider: 06/19/19 23:07 Source: patient, RN notes reviewed, old records reviewed Mode of arrival: ambulatory Limitations: no limitations - History of Present Illness Initial Comments: This is a 29-year-old female here for evaluation of multiple complaints today. Is complaining of right ear pain, sore throat, some sinus pressure running nose. She did have recent sore throat which she believes was related to strep throat same symptoms as her daughter. She also was treated for sinusitis 2 weeks ago with a week of antibiotics which she states did improve symptoms. She denies any possibility of current . No fevers. No trauma. She does have some difficulty hearing out of her right ear nothing out of the left ear. Patient again complaining of sore throat decreased hearing right ear right ear pain no difficulty swallowing. Medical history is consistent for gestational diabetes the patient is currently not on any chronic medications MD Complaint: cough, sore throat, nasal congestion, other (R ear pain) -: days(s) Severity: moderate Severity scale (1-10): 4 Quality: dull, aching Consistency: constant Improves With: nothing Worsens With: nothing Associated Symptoms: rhinorrhea, nasal congestion, sore throat Treatments Prior to Arrival: none - Related Data Home Medications Medication Instructions Recorded Confirmed Pnv No.95/Ferrous Fum/Folic AC 1 each PO DAILY 06/07/18 06/16/18 [ Multivitamin Tablet] Acetaminophen [Tylenol Extra 1,000 mg PO DIRECTED PRN 06/11/18 06/16/18 Strength] Previous Rx's Medication Instructions Recorded HYDROcodone/APAP 5-325MG [Truchas 2 each PO Q4HR PRN #30 tab 06/18/18 5-325] Ibuprofen [Motrin] 600 mg PO Q6HR PRN #40 tab 06/18/18 Azithromycin [Zithromax] 250 mg PO DAILY 3 Days #3 tab 06/19/19 Cetirizine HCl/Pseudoephedrine 1 each PO BID #14 tab.er.12h 06/19/19 [Zyrtec-D Tablet] Allergies Allergy/AdvReac Type Severity Reaction Status Date / Time No Known Allergies Allergy Verified 06/19/19 23:04 Review of Systems ROS Statement: Those systems with pertinent positive or pertinent negative responses have been documented in the HPI. ROS Other: All systems not noted in ROS Statement are negative. Past Medical History Past Medical History: Diabetes Mellitus Additional Past Medical History / Comment(s): GESTATIONAL DIABETES (DIET CONTROLLED), HX OF PALPITATIONS DUE TO ANXIETY., OCCASIONAL GERD., - LMP August History of Any Multi-Drug Resistant Organisms: None Reported Past Surgical History: Section Past Anesthesia/Blood Transfusion Reactions: No Reported Reaction, Motion Sickness Past Psychological History: Anxiety, Depression Smoking Status: Current every day smoker Past Alcohol Use History: None Reported Past Drug Use History: None Reported - Past Family History Father Family Medical History: No Reported History Mother Additional Family Medical History / Comment(s): PRE-CANCEROUS CELLS UTERINE General Exam Limitations: no limitations General appearance: alert, in no apparent distress Head exam: Present: atraumatic, normocephalic, normal inspection Eye exam: Present: normal appearance, PERRL, EOMI, other (R otitis media). Abs ent: scleral icterus, conjunctival injection, periorbital swelling ENT exam: Present: normal exam, mucous membranes moist Neck exam: Present: normal inspection. Absent: tenderness, meningismus, lymphadenopathy Respiratory exam: Present: normal lung sounds bilaterally. Absent: respiratory distress, wheezes, rales, rhonchi, stridor Cardiovascular Exam: Present: regular rate, normal rhythm, normal heart sounds. Absent: systolic murmur, diastolic murmur, rubs, gallop, clicks GI/Abdominal exam: Present: soft, normal bowel sounds. Absent: distended, tenderness, guarding, rebound, rigid Extremities exam: Present: normal inspection, full ROM, normal capillary refill. Absent: tenderness, pedal edema, joint swelling, calf tenderness Back exam: Present: normal inspection Neurological exam: Present: alert, oriented X3, CN II-XII intact Psychiatric exam: Present: normal affect, normal mood Skin exam: Present: warm, dry, intact, normal color. Absent: rash Course Vital Signs 06/19/19 23:01 Temperature 97.9 F Pulse Rate 97 Respiratory 20 Rate Blood Pressure 154/85 O2 Sat by Pulse 98 Oximetry - Reevaluation(s) Reevaluation #1: 06/20/19 00:08 Medical records reviewed Reevaluation #2: 06/20/19 00:08 Symptoms improved here in the Medical Decision Making - Medical Decision Making 29 Female presents today for evaluation, patient presents today for evaluation regards to right ear pain sore throat right-sided facial pain. No significant distress, no fevers. No neck pain or headaches. Patient will be discharged home with treatment for otitis and sinusitis Disposition Clinical Impression: Sinusitis, Right otitis media, Facial paresthesia Disposition: HOME SELF-CARE Condition: Good Instructions (If sedation given, give patient instructions): Sinusitis (ED), Serous Otitis Media (ED) Prescriptions: Azithromycin [Zithromax] 250 mg PO DAILY 3 Days #3 tab Cetirizine HCl/Pseudoephedrine [Zyrtec-D Tablet] 1 each PO BID #14 tab.er.12h Is patient prescribed a controlled substance at d/c from ED?: No Referrals: Emmett Muhammad DO [Primary Care Provider] - 1-2 days
== END 2019-06-20 00:15 | disposition home or self-care (01) ==
LOC: EC 22:58
DX: J32.9 Chronic sinusitis, unspecified (principal); H66.91 Otitis media, unspecified, right ear; R20.0 Anesthesia of skin; F17.200 Nicotine dependence, unspecified, uncomplicated
CPT/HCPCS: 99284; 96372; J1100

== ENCOUNTER → 2020-03-29 | Outpatient (CLI) | payer OTHER ==
--- NOTE | 2020-03-29 17:10 | XR ---
EXAMINATION TYPE: XR thoracic spine 2V DATE OF EXAM: 03/29/2020 CLINICAL HISTORY: Pain of thoracic spine. Back and abdominal pain for 2 years. No known injury. TECHNIQUE: Frontal, lateral, and swimmer's view of thoracic spine are obtained. COMPARISON: None. FINDINGS: Thoracic spine show satisfactory alignment without evidence of acute fracture or dislocatio n. Vertebral body heights and disc space heights are preserved. Mild multilevel anterior osteophytic spurring. Visualized ribs are unremarkable. IMPRESSION: 1. No acute fracture or dislocation is seen in the thoracic spine. 2. Mild degenerative disc disease.
== END | disposition home or self-care (01) ==
LOC: RADXRMAIN 13:55
PROVIDERS: ATTEND Family Medicine
DX: M51.34 Other intervertebral disc degeneration, thoracic region (principal)
CPT/HCPCS: 72070

== ENCOUNTER 2020-05-18 12:31 | Emergency (ER) | payer OTHER ==
[2020-05-18 12:44] VITALS: RESP 18; TEMP 98.6
[2020-05-18] MEDS ORDERED: ONDANSETRON 4 MG/2 ML VIAL IVP STA (13:26)
--- NOTE | 2020-05-18 13:30 | ED ---
Abdominal Pain HPI - General Chief Complaint: Abdominal Pain Stated Complaint: fall/abd pain Time Seen by Provider: 05/18/20 13:07 Source: patient Mode of arrival: ambulatory Limitations: no limitations - History of Present Illness Initial Comments: 29-year-old female presenting to the emergency department with a chief complaint abdominal pain. Patient states earlier today, she lost her footing and fell forward over a chair where the backrest of the chair went directly into her lower abdominal region where her scar is. States her most recent C- section was almost 2 years ago. She does report nausea but no vomiting. No she says there is some weakness. Denies any hematuria or difficulty with urination since the incident occurred. States this occurred about one hour prior to arrival. She denies any chest pain or shortness of breath. She denies any trauma to the head. No blood thinners. - Related Data Home Medications Medication Instructions Recorded Confirmed Cyanocobalamin (Vitamin B-12) 1,000 mcg PO DAILY 05/18/20 05/18/20 [Vitamin B-12] DULoxetine HCL [Cymbalta] 30 mg PO DAILY 05/18/20 05/18/20 Ergocalciferol [Vitamin D2] 50,000 unit PO TH 05/18/20 05/18/20 Ferrous Sulfate [Feosol] 325 mg PO DAILY 05/18/20 05/18/20 Allergies Allergy/AdvReac Type Severity Reaction Status Date / Time No Known Allergies Allergy Verified 05/18/20 14:41 Review of Systems ROS Statement: Those systems with pertinent positive or pertinent negative responses have been documented in the HPI. ROS Other: All systems not noted in ROS Statement are negative. Past Medical History Past Medical History: Diabetes Mellitus Additional Past Medical History / Comment(s): GESTATIONAL DIABETES (DIET CONTROLLED), HX OF PALPITATIONS DUE TO ANXIETY., OCCASIONAL GERD., - LMP August History of Any Multi-Drug Resistant Organisms: None Reported Past Surgical History: Section Past Anesthesia/Blood Transfusion Reactions: No Reported Reaction, Motion Sickness Past Psychological History: Anxiety, Depression Smoking Status: Never smoker Past Alcohol Use History: None Reported Past Drug Use History: None Reported - Past Family History Father Family Medical History: No Reported History Mother Additional Family Medical History / Comment(s): PRE-CANCEROUS CELLS UTERINE General Exam Limitations: no limitations General appearance: alert, in no apparent distress, obese Head exam: Present: atraumatic, normocephalic, normal inspection Eye exam: Present: normal appearance, PERRL, EOMI Pupils: Present: normal accommodation ENT exam: Present: normal exam, normal oropharynx, mucous membranes moist, TM's normal bilaterally, normal external ear exam Neck exam: Present: normal inspection, full ROM. Absent: tenderness Respiratory exam: Present: normal lung sounds bilaterally. Absent: respiratory distress, wheezes, rales Cardiovascular Exam: Present: regular rate, normal rhythm, normal heart sounds. Absent: systolic murmur, diastolic murmur GI/Abdominal exam: Present: soft, tenderness (Lower abdominal tenderness). Absent: distended, guarding, rebound Extremities exam: Present: normal inspection, full ROM, normal capillary refill. Absent: tenderness, pedal edema, joint swelling, calf tenderness Back exam: Present: normal inspection, full ROM. Absent: tenderness, CVA tenderness (R), CVA tenderness (L) Neurological exam: Present: alert, oriented X3 Psychiatric exam: Present: normal affect, normal mood Skin exam: Present: warm, dry, intact, normal color Course Vital Signs 05/18/20 05/18/20 12:41 14:16 Temperature 98.6 F 98.6 F Pulse Rate 98 87 Respiratory 18 18 Rate Blood Pressure 130/79 133/67 O2 Sat by Pulse 98 100 Oximetry Medical Decision Making - Medical Decision Making 29-year-old female presenting to the emergency department with chief complaint of abdominal pain. On physical examination, patient does have trauma to the lower abdominal region where her scar is. CBC CMP is unremarkable. Patient is not . CT abdomen and pelvis performed shows no acute findings. Patient was also given Zofran because she kept complaining of nausea. Patient will be discharged and advised to alternate between Tylenol and Motrin for pain control. Strict return parameters were thoroughly discussed patient is worsening agreeable. Case discussed with physician. - Lab Data Result diagrams: 05/18/20 13:38 05/18/20 13:38 Lab Results 05/18/20 05/18/20 05/18/20 Range/Units 13:32 13:32 13:38 WBC 10.9 H (3.8-10.6) k/uL RBC 5.32 (3.80-5.40) m/uL Hgb 15.2 (11.4-16.0) gm/dL Hct 45.4 (34.0-46.0) % MCV 85.4 (80.0-100.0) fL MCH 28.6 (25.0-35.0) pg MCHC 33.5 (31.0-37.0) g/dL RDW 13.5 (11.5-15.5) % Plt Count 260 (150-450) k/uL MPV 7.8 Neutrophils % 79 % Lymphocytes % 15 % Monocytes % 4 % Eosinophils % 1 % Basophils % 0 % Neutrophils # 8.6 H (1.3-7.7) k/uL Lymphocytes # 1.6 (1.0-4.8) k/uL Monocytes # 0.4 (0-1.0) k/uL Eosinophils # 0.1 (0-0.7) k/uL Basophils # 0.0 (0-0.2) k/uL Sodium (137-145) mmol/L Potassium (3.5-5.1) mmol/L Chloride (98-107) mmol/L Carbon Dioxide (22-30) mmol/L Anion Gap mmol/L BUN (7-17) mg/dL Creatinine (0.52-1.04) mg/dL Est GFR (CKD-EPI)AfAm (>60 ml/min/1.73 sqM) Est GFR (CKD-EPI)NonAf (>60 ml/min/1.73 sqM) Glucose (74-99) mg/dL Calcium (8.4-10.2) mg/dL Total Bilirubin (0.2-1.3) mg/dL AST (14-36) U/L ALT (4-34) U/L Alkaline Phosphatase (38-126) U/L Total Protein (6.3-8.2) g/dL Albumin (3.5-5.0) g/dL Urine Color Yellow Urine Appearance Cloudy H (Clear) Urine pH 6.0 (5.0-8.0) Ur Specific [place] 1.016 (1.001-1.035) Urine Protein Negative (Negative) Urine Glucose (UA) Negative (Negative) Urine Ketones Negative (Negative) Urine Blood Negative (Negative) Urine Nitrite Negative (Negative) Urine Bilirubin Negative (Negative) Urine Urobilinogen <2.0 (<2.0) mg/dL Ur Leukocyte Esterase Large H (Negative) Urine WBC 3 (0-5) /hpf Ur Squamous Epith Cells 17 H (0-4) /hpf Urine Bacteria Occasional H (None) /hpf Urine Mucus Many H (None) /hpf Urine HCG, Qual Not Detected (Not Detectd) 05/18/20 Range/Units 13:38 WBC (3.8-10.6) k/uL RBC (3.80-5.40) m/uL Hgb (11.4-16.0) gm/dL Hct (34.0-46.0) % MCV (80.0-100.0) fL MCH (25.0-35.0) pg MCHC (31.0-37.0) g/dL RDW (11.5-15.5) % Plt Count (150-450) k/uL MPV Neutrophils % % Lymphocytes % % Monocytes % % Eosinophils % % Basophils % % Neutrophils # (1.3-7.7) k/uL Lymphocytes # (1.0-4.8) k/uL Monocytes # (0-1.0) k/uL Eosinophils # (0-0.7) k/uL Basophils # (0-0.2) k/uL Sodium 139 (137-145) mmol/L Potassium 4.2 (3.5-5.1) mmol/L Chloride 107 (98-107) mmol/L Carbon Dioxide 27 (22-30) mmol/L Anion Gap 5 mmol/L BUN 9 (7-17) mg/dL Creatinine 0.63 (0.52-1.04) mg/dL Est GFR (CKD-EPI)AfAm >90 (>60 ml/min/1.73 sqM) Est GFR (CKD-EPI)NonAf >90 (>60 ml/min/1.73 sqM) Glucose 93 (74-99) mg/dL Calcium 9.8 (8.4-10.2) mg/dL Total Bilirubin 0.4 (0.2-1.3) mg/dL AST 21 (14-36) U/L ALT 20 (4-34) U/L Alkaline Phosphatase 52 (38-126) U/L Total Protein 7.6 (6.3-8.2) g/dL Albumin 4.4 (3.5-5.0) g/dL Urine Color Urine Appearance (Clear) Urine pH (5.0-8.0) Ur Specific [place] (1.001-1.035) Urine Protein (Negative) Urine Glucose (UA) (Negative) Urine Ketones (Negative) Urine Blood (Negative) Urine Nitrite (Negative) Urine Bilirubin (Negative) Urine Urobilinogen (<2.0) mg/dL Ur Leukocyte Esterase (Negative) Urine WBC (0-5) /hpf Ur Squamous Epith Cells (0-4) /hpf Urine Bacteria (None) /hpf Urine Mucus (None) /hpf Urine HCG, Qual (Not Detectd) Disposition Clinical Impression: Abdominal pain Disposition: HOME SELF-CARE Condition: Stable Instructions (If sedation given, give patient instructions): Abdominal Pain (ED) Additional Instructions: Alternate between Tylenol and Motrin for pain control. Return to emergency department if symptoms worsen. Is patient prescribed a controlled substance at d/c from ED?: No Referrals: Emmett Muhammad DO [Primary Care Provider] - 1-2 days Time of Disposition: 15:02
[2020-05-18 13:55] LABS: Appearance,Urine Cloudy (Clear); Bacteria,Urine Occasional /hpf; Bilirubin,Urine Negative (Negative); Blood,Urine Negative (Negative); Color,Urine Yellow; Glucose,Urine (UA) Negative (Negative); Ketones,Urine Negative (Negative); Leukocyte Esterase,Urine Large (Negative); Mucus,Urine Many /hpf; Nitrite,Urine Negative (Negative); Protein,Urine Negative (Negative); Specific Gravity,Urine 1.016 (1.001-1.035); Squamous Epithelial Cell,Urine 17 /hpf (0-4); Urobilinogen,Urine <2.0 mg/dL (<2.0); WBC,Urine 3 /hpf (0-5)
[2020-05-18 14:01] LABS: Basophils % (A) 0 %; Eosinophils # (A) 0.1 k/uL (0-0.7); Eosinophils % (A) 1 %; HCT 45.4 % (34.0-46.0); HGB 15.2 gm/dL (11.4-16.0); Lymphocytes # (A) 1.6 k/uL (1.0-4.8); Lymphocytes % (A) 15 %; MCH 28.6 pg (25.0-35.0); MCHC 33.5 g/dL (31.0-37.0); MCV 85.4 fL (80.0-100.0); Mean Platelet Volume 7.8; Monocytes # (A) 0.4 k/uL (0-1.0); Monocytes % (A) 4 %; Neutrophils # (A) 8.6 k/uL (1.3-7.7); Neutrophils % (A) 79 %; Platelet Count 260 k/uL (150-450); RBC 5.32 m/uL (3.80-5.40); RDW 13.5 % (11.5-15.5); WBC 10.9 k/uL (3.8-10.6)
[2020-05-18 14:10] LABS: ALT 20 U/L (4-34); AST 21 U/L (14-36); African American GFR (CKD) >90 (>60 ml/min/1.73 sqM); Albumin 4.4 g/dL (3.5-5.0); Alkaline Phosphatase 52 U/L (38-126); Anion Gap 5 mmol/L; Blood Urea Nitrogen 9 mg/dL (7-17); Calcium 9.8 mg/dL (8.4-10.2); Carbon Dioxide 27 mmol/L (22-30); Chloride 107 mmol/L (98-107); Glucose 93 mg/dL (74-99); Non-African American GFR(CKD) >90 (>60 ml/min/1.73 sqM); Potassium 4.2 mmol/L (3.5-5.1); Sodium 139 mmol/L (137-145); Total Bilirubin 0.4 mg/dL (0.2-1.3); Total Protein 7.6 g/dL (6.3-8.2)
[2020-05-18 14:17] VITALS: BP 133/67; PULSE 87
--- NOTE | 2020-05-18 14:47 | CT ---
EXAMINATION TYPE: CT abdomen pelvis w con DATE OF EXAM: 05/18/2020 COMPARISON: None INDICATION: Lower Abdominal pain post fall. DLP: 1815.8 mGycm, Automated exposure control for dose reduction was used. CONTRAST: 100 mL of Isovue 300. Study performed without Oral Contrast TECHNIQUE: Axial images were obtained from above the diaphragm to the pubic rami in the axial plane a t 5 mm thick sections. Reconstructed images are reviewed on the computer in the coronal plane. FINDINGS: Limited CT sections are obtained the lung bases. The lung bases are clear. CT ABDOMEN: Liver: Normal Spleen: Normal Pancreas: Normal Adrenal glands: The adrenal glands are normal. Gallbladder: Normal Kidneys: No masses are evident. No hydronephrosis is present. No cysts are present. Delayed images were obtained through the kidneys, which remain unremarkable. Aorta: Vascular calcification is within the aorta. Inferior vena cava: Normal. CT PELVIS: Loops of bowel within the abdomen and pelvis are normal. Study is without oral contrast limiting bowel evaluation. Appendix: Normal as visualized. Urinary bladder: Normal. Genitourinary structures: Uterus is normal. Adnexal regions are normal. Osseous structures: No suspicious lytic or sclerotic lesions. IMPRESSIONS: 1. Normal CT abdomen and pelvis
== END 2020-05-18 15:13 | disposition home or self-care (01) ==
LOC: EC 12:31
DX: R10.9 Unspecified abdominal pain (principal); R11.0 Nausea; F41.9 Anxiety disorder, unspecified; F32.9 Major depressive disorder, single episode, unspecified; Z79.899 Other long term (current) drug therapy; Z98.890 Other specified postprocedural states; Z87.19 Personal history of other diseases of the digestive system; S39.91XA Unspecified injury of abdomen, initial encounter; W17.89XA Other fall from one level to another, initial encounter; Y92.009 Unspecified place in unspecified non-institutional (private) residence as the place of occurrence of the external cause
CPT/HCPCS: 36415; 80053; 85025; 81001; 81025; 74177; 99284; 96374; J2405; Q9967

== ENCOUNTER → 2021-04-30 | Outpatient (CLI) | payer OTHER ==
[2021-04-30 12:47] VITALS: BP 131/80; PULSE 82; TEMP 98.1; BMI 44.0
--- NOTE | 2021-04-30 15:16 | P.HPBAR ---
Bariatric H&P - History & Physicial H&P Date: 04/30/21 History & Physicial: Visit/CC: initial clinic visit Patient initial contact: Initial weight: Initial weight in pounds: Height: 5 ft 2 in Initial BMI: Last weight: Current weight: 109.316 kg Current weight in pounds: 241.00 Current BMI: 44.0 [place] body weight (based on NIH guidelines): 49.895 kg Excess body weight loss: The patient is a 30 year-old F who presents for Bariatric Assessment. 30-year-old female here for evaluation. Patient interested in sleeve gastrectomy. Patient states she is uneasy about gastric bypass because of the complexity. Patient today in the online seminar recently. Comorbidities include mild reflux, hidradenitis, chronic back pain, osteoarthritis, fibromyalgia. Patient is smoking actively. Her insurance company is requiring that she be tobacco free 6 months. She does have a 6 month supervised weight loss. No previous EGD. Patient's reflux is mild and takes [id number] antacids occasionally. No history of DVT or dysphagia. BMI 44. Review of Systems The patient denies any acute changes in vision or hearing, no dysphagia or odynophagia, no chest pain or shortness of breath, no dysuria or hematuria, no headache, no runny nose, no rectal bleeding or melena, no unexplained weight loss Past Medical History Past Medical History: Diabetes Mellitus Additional Past Medical History / Comment(s): GESTATIONAL DIABETES (DIET CONTROLLED), HX OF PALPITATIONS DUE TO ANXIETY., OCCASIONAL GERD., - LMP August History of Any Multi-Drug Resistant Organisms: None Reported Past Surgical History: Section Past Anesthesia/Blood Transfusion Reactions: No Reported Reaction, Motion Sickness Past Psychological History: Anxiety, Depression Additional Psychological History / Comment(s): not currently medicated Smoking Status: Current every day smoker Past Alcohol Use History: None Reported Additional Past Alcohol Use History / Comment(s): QUIT SMOKING 1 MONTH AGO (APR 2018). SMOKED 1-2 CIGARETTES /DAY. SMOKED 16 YEARS. Past Drug Use History: None Reported - Past Family History Father Family Medical History: No Reported History Mother Family Medical History: No Reported History Additional Family Medical History / Comment(s): PRE-CANCEROUS CELLS UTERINE Surgical - Exam Vital Signs Temp Pulse BP 98.1 F 82 131/80 04/30/21 12:33 04/30/21 12:33 04/30/21 12:33 Physical exam: General: Well-developed, well-nourished HEENT: Normocephalic, sclerae nonicteric Abdomen: Nontender, nondistended Extremities: No edema Neuro: Alert and oriented Bariatric Assessment & Plan (1) Morbid obesity with BMI of 40.0-44.9, adult Narrative/Plan: 30-year-old female with morbid obesity and associated comorbidities. Patient is interested in sleeve gastrectomy. Risks, benefits, and expected weight loss of sleeve gastrectomy and gastric bypass discussed in detail. The risks of bleeding, infection, stenosis, stricture, leak, abscess, fistula formation, peritonitis, poor weight loss, reflux, vomiting, conversion to an open procedure, aborting sleeve gastrectomy, [place], PE, DVT, and were discussed. The patient understands and wishes to proceed. Will begin 6 month supervised weight loss diet. Patient to begin smoking cessation. Status: Acute Bariatric Checklist Checklist: Plan: Checklist: EGD: 1. Hiatal hernia: 2. H. Pylori: HgbA1c: Vitamin D: Smoking: Current every day smoker Primary care physician referral: Psychiatry clearance: Cardiology clearance: Sleep study: Diet journal: VTE risk score: VTE risk level: Rehab needs at discharge:
== END | disposition home or self-care (01) ==
LOC: BARWHC3 12:11
PROVIDERS: ATTEND Surgery
DX: E66.01 Morbid (severe) obesity due to excess calories (principal); Z68.41 Body mass index [BMI] 40.0-44.9, adult
CPT/HCPCS: 99203

== ENCOUNTER 2021-05-09 12:23 | Emergency (ER) | payer OTHER ==
[2021-05-09] MEDS ORDERED: SODIUM CHLORIDE 0.9% 1,000 ML IV STA (14:14)
[2021-05-09] MEDS ORDERED: ONDANSETRON 4 MG/2 ML VIAL IVP STA (14:17)
--- NOTE | 2021-05-09 14:24 | ED ---
General Adult HPI - General Chief complaint: Shortness of Breath Stated complaint: dizziness; disoriented Time Seen by Provider: 05/09/21 13:53 Source: patient, RN notes reviewed Mode of arrival: ambulatory Limitations: no limitations - History of Present Illness Initial comments: 30-year-old female presents to the emergency department today for evaluation of generalized weakness, dizziness, and shortness of breath. Patient states she was shopping last night when she came more aware of her breathing stating she felt like she could only take shallow breaths. Also complains of diffuse chest pressure that extends into her shoulders. Reports mild intermittent nausea, and a few episodes of diarrhea. Patient states she recently started taking Wellb utrin and increased her dose as directed because she was tolerating it well. Does report contact with another individual who has been feeling sick with nonspecific illness. Denies fever, chills, headache, abdominal pain, constipation, dysuria, and hematuria. - Related Data Home Medications Medication Instructions Recorded Confirmed Ergocalciferol [Vitamin D2] 50,000 unit PO DUGAN 05/18/20 05/09/21 Vitamin B Complex 1 cap PO DAILY 05/09/21 05/09/21 buPROPion SR [Wellbutrin SR] 150 mg PO BID 05/09/21 05/09/21 Allergies Allergy/AdvReac Type Severity Reaction Status Date / Time No Known Allergies Allergy Verified 05/09/21 14:53 Review of Systems ROS Statement: Those systems with pertinent positive or pertinent negative responses have been documented in the HPI. ROS Other: All systems not noted in ROS Statement are negative. Past Medical History Past Medical History: Diabetes Mellitus Additional Past Medical History / Comment(s): GESTATIONAL DIABETES (DIET CONTROLLED), HX OF PALPITATIONS DUE TO ANXIETY., OCCASIONAL GERD., - LMP August History of Any Multi-Drug Resistant Organisms: None Reported Past Surgical History: Section Past Anesthesia/Blood Transfusion Reactions: No Reported Reaction, Motion Sickness Past Psychological History: Anxiety, Depression Smoking Status: Current every day smoker Past Alcohol Use History: None Reported Past Drug Use History: None Reported - Past Family History Father Family Medical History: No Reported History Mother Family Medical History: No Reported History Additional Family Medical History / Comment(s): PRE-CANCEROUS CELLS UTERINE General Exam Limitations: no limitations General appearance: alert, in no apparent distress, other (Well-developed, well-nourished female in no acute distress. Initial temperature 98.3, pulse 80, respirations 20, blood pressure 134/94, pulse ox 98% on room air) Head exam: Present: atraumatic, normocephalic, normal inspection Eye exam: Present: normal appearance, PERRL, EOMI. Absent: scleral icterus, conjunctival injection, periorbital swelling ENT exam: Present: normal exam, normal oropharynx, mucous membranes moist, TM's normal bilaterally Neck exam: Present: normal inspection. Absent: tenderness, meningismus, lymph adenopathy Respiratory exam: Present: normal lung sounds bilaterally. Absent: respiratory distress, wheezes, rales, rhonchi, stridor Cardiovascular Exam: Present: regular rate, normal rhythm, normal heart sounds. Absent: systolic murmur, diastolic murmur, rubs, gallop, clicks GI/Abdominal exam: Present: soft, normal bowel sounds. Absent: distended, tenderness, guarding, rebound, rigid Neurological exam: Present: alert, oriented X3 Expanded Patient oriented to: Present: person, place, time Speech: Present: fluid speech Cranial nerves: EOM's Intact: Normal Cerebellar function: Romberg: Normal Motor strength exam: RUE: 5, LUE: 5, RLE: 5, LLE: 5 Eye Response: (4) open spontaneously Motor Response: (6) obeys commands Verbal Response: (5) oriented Tito Total: 15 Psychiatric exam: Present: flat affect Skin exam: Present: warm, dry, intact, normal color Course Vital Signs 05/09/21 05/09/21 05/09/21 13:38 14:43 15:00 Temperature 98.3 F Pulse Rate 80 84 87 Respiratory 20 18 18 Rate Blood Pressure 134/94 107/66 111/72 O2 Sat by Pulse 98 98 97 Oximetry 05/09/21 05/09/21 05/09/21 15:24 16:00 18:50 Temperature 98 F Pulse Rate 96 88 Respiratory 18 18 18 Rate Blood Pressure 104/74 110/72 O2 Sat by Pulse 97 98 Oximetry - Reevaluation(s) Reevaluation #1: 05/09/21 16:30 Patient states she is feeling somewhat better after fluids and medication. 05/09/21 15:15 Orthostatic BP Flat: BP99/67, HR 74 Sitting: BP108/71, HR 84 Standing: BP122/65, HR 87 Medical Decision Making - Medical Decision Making 30-year-old female presents to the emergency department for evaluation of symptoms that began yesterday. Upon exam, patient is well-appearing with no focal neuro deficits. States she feels particularly weak and has dizziness with position changes. Orthostatic blood pressures were measured and found to be unremarkable. Also complains of shallow breathing, though patient is not tachypneic and chest x-ray shows no acute findings. Patient reports increased level of anxiety to which she attributes that tension and discomfort in her chest and shoulders. EKG is normal sinus rhythm with no ectopy or ST-T segment changes, troponin is negative. States she recently began taking Wellbutrin and increased the dose as directed. Expresses concern that her symptoms are related to the medication- Discussed this as a possibility and encourage patient to continue taking the medication once a day and call her psychiatrist for further direction. Also discussed benign positional vertigo as a possible explanation f or the patient's dizziness. Encouraged her to make position changes slowly. Patient will be discharged home to follow up as directed. Return parameters were discussed in detail. Patient verbalizes understanding and agrees with this plan. This patient's care was discussed with my attending Dr. Alejandro. - Lab Data Result diagrams: 05/09/21 15:10 05/09/21 15:10 Lab Results 05/09/21 05/09/21 05/09/21 Range/Units 15:10 15:10 15:10 WBC 10.7 H (3.8-10.6) k/uL RBC 5.11 (3.80-5.40) m/uL Hgb 14.9 (11.4-16.0) gm/dL Hct 45.4 (34.0-46.0) % MCV 88.9 (80.0-100.0) fL MCH 29.1 (25.0-35.0) pg MCHC 32.8 (31.0-37.0) g/dL RDW 13.2 (11.5-15.5) % Plt Count 268 (150-450) k/uL MPV 8.3 Neutrophils % 70 % Lymphocytes % 21 % Monocytes % 5 % Eosinophils % 2 % Basophils % 1 % Neutrophils # 7.5 (1.3-7.7) k/uL Lymphocytes # 2.2 (1.0-4.8) k/uL Monocytes # 0.6 (0-1.0) k/uL Eosinophils # 0.2 (0-0.7) k/uL Basophils # 0.1 (0-0.2) k/uL PT 10.0 (9.0-12.0) sec INR 0.9 (<1.2) APTT 24.4 (22.0-30.0) sec D-Dimer 0.32 (<0.60) mg/L FEU Sodium 138 (137-145) mmol/L Potassium 4.4 (3.5-5.1) mmol/L Chloride 106 (98-107) mmol/L Carbon Dioxide 23 (22-30) mmol/L Anion Gap 9 mmol/L BUN 10 (7-17) mg/dL Creatinine 0.83 (0.52-1.04) mg/dL Est GFR (CKD-EPI)AfAm >90 (>60 ml/min/1.73 sqM) Est GFR (CKD-EPI)NonAf >90 (>60 ml/min/1.73 sqM) Glucose 85 (74-99) mg/dL Calcium 9.9 (8.4-10.2) mg/dL Total Bilirubin 0.3 (0.2-1.3) mg/dL AST 26 (14-36) U/L ALT 29 (4-34) U/L Alkaline Phosphatase 65 (38-126) U/L Troponin I (0.000-0.034) ng/mL Total Protein 7.9 (6.3-8.2) g/dL Albumin 4.6 (3.5-5.0) g/dL Urine Color Urine Appearance (Clear) Urine pH (5.0-8.0) Ur Specific [place] (1.001-1.035) Urine Protein (Negative) Urine Glucose (UA) (Negative) Urine Ketones (Negative) Urine Blood (Negative) Urine Nitrite (Negative) Urine Bilirubin (Negative) Urine Urobilinogen (<2.0) mg/dL Ur Leukocyte Esterase (Negative) Urine RBC (0-5) /hpf Urine WBC (0-5) /hpf Ur Squamous Epith Cells (0-4) /hpf Urine Mucus (None) /hpf Urine HCG, Qual (Not Detectd) Coronavirus (PCR) (Not Detectd) 05/09/21 05/09/21 05/09/21 Range/Units 15:10 15:12 15:15 WBC (3.8-10.6) k/uL RBC (3.80-5.40) m/uL Hgb (11.4-16.0) gm/dL Hct (34.0-46.0) % MCV (80.0-100.0) fL MCH (25.0-35.0) pg MCHC (31.0-37.0) g/dL RDW (11.5-15.5) % Plt Count (150-450) k/uL MPV Neutrophils % % Lymphocytes % % Monocytes % % Eosinophils % % Basophils % % Neutrophils # (1.3-7.7) k/uL Lymphocytes # (1.0-4.8) k/uL Monocytes # (0-1.0) k/uL Eosinophils # (0-0.7) k/uL Basophils # (0-0.2) k/uL PT (9.0-12.0) sec INR (<1.2) APTT (22.0-30.0) sec D-Dimer (<0.60) mg/L FEU Sodium (137-145) mmol/L Potassium (3.5-5.1) mmol/L Chloride (98-107) mmol/L Carbon Dioxide (22-30) mmol/L Anion Gap mmol/L BUN (7-17) mg/dL Creatinine (0.52-1.04) mg/dL Est GFR (CKD-EPI)AfAm (>60 ml/min/1.73 sqM) Est GFR (CKD-EPI)NonAf (>60 ml/min/1.73 sqM) Glucose (74-99) mg/dL Calcium (8.4-10.2) mg/dL Total Bilirubin (0.2-1.3) mg/dL AST (14-36) U/L ALT (4-34) U/L Alkaline Phosphatase (38-126) U/L Troponin I <0.012 (0.000-0.034) ng/mL Total Protein (6.3-8.2) g/dL Albumin (3.5-5.0) g/dL Urine Color Yellow Urine Appearance Cloudy H (Clear) Urine pH 7.5 (5.0-8.0) Ur Specific [place] 1.025 (1.001-1.035) Urine Protein Trace H (Negative) Urine Glucose (UA) Negative (Negative) Urine Ketones 1+ H (Negative) Urine Blood Small H (Negative) Urine Nitrite Negative (Negative) Urine Bilirubin Negative (Negative) Urine Urobilinogen <2.0 (<2.0) mg/dL Ur Leukocyte Esterase Negative (Negative) Urine RBC 1 (0-5) /hpf Urine WBC 2 (0-5) /hpf Ur Squamous Epith Cells 8 H (0-4) /hpf Urine Mucus Few H (None) /hpf Urine HCG, Qual (Not Detectd) Coronavirus (PCR) Not Detected (Not Detectd) 05/09/21 Range/Units 15:15 WBC (3.8-10.6) k/uL RBC (3.80-5.40) m/uL Hgb (11.4-16.0) gm/dL Hct (34.0-46.0) % MCV (80.0-100.0) fL MCH (25.0-35.0) pg MCHC (31.0-37.0) g/dL RDW (11.5-15.5) % Plt Count (150-450) k/uL MPV Neutrophils % % Lymphocytes % % Monocytes % % Eosinophils % % Basophils % % Neutrophils # (1.3-7.7) k/uL Lymphocytes # (1.0-4.8) k/uL Monocytes # (0-1.0) k/uL Eosinophils # (0-0.7) k/uL Basophils # (0-0.2) k/uL PT (9.0-12.0) sec INR (<1.2) APTT (22.0-30.0) sec D-Dimer (<0.60) mg/L FEU Sodium (137-145) mmol/L Potassium (3.5-5.1) mmol/L Chloride (98-107) mmol/L Carbon Dioxide (22-30) mmol/L Anion Gap mmol/L BUN (7-17) mg/dL Creatinine (0.52-1.04) mg/dL Est GFR (CKD-EPI)AfAm (>60 ml/min/1.73 sqM) Est GFR (CKD-EPI)NonAf (>60 ml/min/1.73 sqM) Glucose (74-99) mg/dL Calcium (8.4-10.2) mg/dL Total Bilirubin (0.2-1.3) mg/dL AST (14-36) U/L ALT (4-34) U/L Alkaline Phosphatase (38-126) U/L Troponin I (0.000-0.034) ng/mL Total Protein (6.3-8.2) g/dL Albumin (3.5-5.0) g/dL Urine Color Urine Appearance (Clear) Urine pH (5.0-8.0) Ur Specific [place] (1.001-1.035) Urine Protein (Negative) Urine Glucose (UA) (Negative) Urine Ketones (Negative) Urine Blood (Negative) Urine Nitrite (Negative) Urine Bilirubin (Negative) Urine Urobilinogen (<2.0) mg/dL Ur Leukocyte Esterase (Negative) Urine RBC (0-5) /hpf Urine WBC (0-5) /hpf Ur Squamous Epith Cells (0-4) /hpf Urine Mucus (None) /hpf Urine HCG, Qual Not Detected (Not Detectd) Coronavirus (PCR) (Not Detectd) - EKG Data EKG shows normal: sinus rhythm Rate: normal EKG Comments: EKG obtained at 1406 and shows normal sinus rhythm. Ventricular rate 80, KS interval 156, QRS duration 86, QT/QTC 360/424. No evidence of ST depression or elevation. - Radiology Data Radiology results: report reviewed, image reviewed Two-view chest x-ray was obtained. Report was reviewed in its entirety. Impression per Dr. Charles is no focal airspace disease, pneumothorax, or pleural effusion. Normal cardiomediastinal silhouette. No acute osseous abnormality seen. Disposition Clinical Impression: Dizziness, nonspecific, Medication reaction Disposition: HOME SELF-CARE Condition: Stable Instructions (If sedation given, give patient instructions): Dizziness (ED) Additional Instructions: Rest. Make position changes slowly. Call your psychiatrist tomorrow to discuss medication adjustment. Continue regular follow-up care with her primary care provider; call to schedule follow-up appointment. Return to the emergency department with any new, worsening, or concerning symptoms as discussed. Is patient prescribed a controlled substance at d/c from ED?: No Referrals: Emmett Muhammad DO [Primary Care Provider] - 1-2 days Time of Disposition: 17:41
[2021-05-09 15:24] VITALS: RESP 18
[2021-05-09 15:26] LABS: Basophils # (A) 0.1 k/uL (0-0.2); Basophils % (A) 1 %; Eosinophils # (A) 0.2 k/uL (0-0.7); Eosinophils % (A) 2 %; HCT 45.4 % (34.0-46.0); HGB 14.9 gm/dL (11.4-16.0); Lymphocytes # (A) 2.2 k/uL (1.0-4.8); Lymphocytes % (A) 21 %; MCH 29.1 pg (25.0-35.0); MCHC 32.8 g/dL (31.0-37.0); MCV 88.9 fL (80.0-100.0); Mean Platelet Volume 8.3; Monocytes # (A) 0.6 k/uL (0-1.0); Monocytes % (A) 5 %; Neutrophils # (A) 7.5 k/uL (1.3-7.7); Neutrophils % (A) 70 %; Platelet Count 268 k/uL (150-450); RBC 5.11 m/uL (3.80-5.40); RDW 13.2 % (11.5-15.5); WBC 10.7 k/uL (3.8-10.6)
[2021-05-09 15:44] LABS: ALT 29 U/L (4-34); AST 26 U/L (14-36); African American GFR (CKD) >90 (>60 ml/min/1.73 sqM); Albumin 4.6 g/dL (3.5-5.0); Alkaline Phosphatase 65 U/L (38-126); Anion Gap 9 mmol/L; Blood Urea Nitrogen 10 mg/dL (7-17); Calcium 9.9 mg/dL (8.4-10.2); Carbon Dioxide 23 mmol/L (22-30); Chloride 106 mmol/L (98-107); Glucose 85 mg/dL (74-99); Non-African American GFR(CKD) >90 (>60 ml/min/1.73 sqM); Potassium 4.4 mmol/L (3.5-5.1); Sodium 138 mmol/L (137-145); Total Bilirubin 0.3 mg/dL (0.2-1.3); Total Protein 7.9 g/dL (6.3-8.2)
[2021-05-09 16:03] LABS: Appearance,Urine Cloudy (Clear); Bilirubin,Urine Negative (Negative); Blood,Urine Small (Negative); Color,Urine Yellow; Glucose,Urine (UA) Negative (Negative); Ketones,Urine 1+ (Negative); Leukocyte Esterase,Urine Negative (Negative); Mucus,Urine Few /hpf; Nitrite,Urine Negative (Negative); PH, Urine 7.5 (5.0-8.0); Protein,Urine Trace (Negative); RBC,Urine 1 /hpf (0-5); Specific Gravity,Urine 1.025 (1.001-1.035); Squamous Epithelial Cell,Urine 8 /hpf (0-4); Urobilinogen,Urine <2.0 mg/dL (<2.0); WBC,Urine 2 /hpf (0-5)
[2021-05-09 16:26] LABS: INR 0.9 (<1.2); Partial Thromboplastin Time 24.4 sec (22.0-30.0)
--- NOTE | 2021-05-09 16:36 | XR ---
EXAMINATION TYPE: XR chest 2V DATE OF EXAM: 05/09/2021 COMPARISON: NONE HISTORY: 30 years Female. STUDY INDICATION GIVEN: difficulty breathing . TECHNIQUE: PA and lateral chest radiographs IMPRESSION: No focal airspace disease, pneumothorax or pleural effusion. The cardiomediastinal silhouette is normal in appearance. No acute osseous abnormalities seen.
[2021-05-09 18:52] VITALS: BP 110/72; PULSE 88; TEMP 98
== END 2021-05-09 18:15 | disposition home or self-care (01) ==
LOC: EC 12:23
DX: T50.905A Adverse effect of unspecified drugs, medicaments and biological substances, initial encounter (principal); R42 Dizziness and giddiness; R06.02 Shortness of breath; R53.1 Weakness; R11.0 Nausea; E11.9 Type 2 diabetes mellitus without complications; F17.200 Nicotine dependence, unspecified, uncomplicated; Z20.822 Contact with and (suspected) exposure to COVID-19
CPT/HCPCS: 36415; 85379; 80053; 84484; 85025; 85610; 85730; 81001; 81025; 87635; 71046; 99285; 96361; 96374; J2405

== ENCOUNTER → 2023-10-14 | Outpatient (CLI) | payer OTHER ==
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
== END | disposition home or self-care (01) ==
LOC: RADMRIMAIN 19:17
PROVIDERS: ATTEND Orthopaedic Surgery
DX: M25.462 Effusion, left knee (principal); M71.22 Synovial cyst of popliteal space [Baker], left knee

== ENCOUNTER → 2023-10-27 | Outpatient (CLI) | payer OTHER ==
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
== END | disposition home or self-care (01) ==
LOC: RADMRIMAIN 20:15
PROVIDERS: ATTEND Orthopaedic Surgery
DX: M75.112 Incomplete rotator cuff tear or rupture of left shoulder, not specified as traumatic (principal); M67.814 Other specified disorders of tendon, left shoulder